=== PATIENT | female | born 1950 | race Two or more races ===

== ENCOUNTER → 2017-03-07 | Outpatient (CLI) | payer BC ==
[~2017-03-07] MED LIST: AMLO-147 PO; ASPI81TA3 PO; ATEN-51 PO; CLON-379 PO; HYDR-906 PO; IBUP200C PO; LEVO88TA42 PO; LISI20TA11 PO
--- NOTE | 2017-03-08 04:23 | HKNOTE ---
DATE OF SERVICE: 03/07/2017 The patient comes in with her daughter for reevaluation. She continues to have some symptoms in her left knee. She feels that "pain coombs my knee is 100% better than it was before the operation." Macarena west had operative arthroscopy. She complains that she still gets "tightness in the left thigh from th e greater trochanter to the knee and from the knee down to the left calf to the mid-calf level." Macarena west has a long history of low back pain and sciatica. PHYSICAL EXAMINATION: The patient comes in with her daughter. She is not in any degree of stress. She walks without a walking aid. LEFT KNEE: The left knee shows normal alignment. Active and passive extension is 0 degrees. Active and passive flexion is 135 degrees. The medial and lateral collateral ligaments and cruciate ligamen ts are intact. Pastora test is negative. There is 2+ effusion. No tenderness, scarring or cysts. T here is 3+ crepitus in the knee and patella. The patella tracks normally. There is no tenderness on the articular surface of the patella or in the patellar groove. The Q angle is normal. Full range o f motion. No external signs of infection or inflammation. NEUROLOGIC: Deep tendon reflexes in the lower extremities: Right knee jerk +, left knee jerk +, ri ght ankle jerk +, left ankle jerk +. Straight leg raising is negative bilaterally at 80 degrees. [place] and EMMANUEL tests are negative. DISCUSSION: The patient was reminded that I told her she had much arthritis in her knee and that macarena west could not expect the knee would be completely cured of all symptoms by my arthroscopic operation. She seems reluctant to accept my diagnosis that the symptoms in her leg are probably coming from her lower back. She wanted to know if I could remove the fluid from her knee and I advised her that it would recur a gain very quickly and there no point in doing so. She will be seen again as necessary. Dictated By: KEIRA BARRIGA/RHIANNA Conf#: [id number] DID#: [id number]
== END | disposition home or self-care (01) ==
LOC: HKI 15:13
DX: M25.562 Pain in left knee (principal)
CPT/HCPCS: G0463